=== PATIENT | female | born 1980 | race American Indian/Alaskan Native ===

== ENCOUNTER 2017-04-21 11:25 | Observation (INO) | payer OTHER ==
--- NOTE | 2017-04-20 13:49 | Anesthesia Consultation ---
Anesthesia Consult and Med Hx Date of service: 04/20/17 - Airway Anesthetic Teeth Evaluation: Good ROM Head & Neck: Adequate Mental/Hyoid Distance: Adequate Mallampati Class: Class II Intubation Access Assessment: Probably Good - Pulmonary Exam CTA: Yes - Cardiac Exam Cardiac Exam: RRR - Pre-Operative Health Status ASA Pre-Surgery Classification: ASA2 Proposed Anesthetic Plan: General Nerve Block: TAP - Pulmonary Hx Smoking: No Hx Asthma: Yes (last treated "during allergy season") Hx Sleep Apnea: No - Cardiovascular System Hx Hypertension: No - Central Nervous System Hx Psychiatric Problems: No - Gastrointestinal Hx Gastroesophageal Reflux Disease: Yes (OTC meds prn) - Hematic Hx Anemia: Yes - Other Systems Hx Cancer: No Hx Obesity: Yes - Additional Comments Anesthesia Medical History Comments: NAC
[2017-04-20 14:19] LABS: Basophils % (Auto) 0.4 % (0.0-1.8); Eosinophils % (Auto) 1.1 % (0.0-4.3); Hematocrit 32.5 % (30.3-42.9); Hemoglobin 10.3 gm/dl (10.1-14.3); Mean Corpuscular HGB Conc 32 % (30-34); Mean Corpuscular Volume 76 fl (79-97); Platelet Count 349 K/mm3 (140-440); Red Blood Count 4.25 M/mm3 (3.65-5.03); Red Cell Distribution Width 17.6 % (13.2-15.2); White Blood Count 8.5 K/mm3 (4.5-11.0)
[2017-04-20 14:31] LABS: Mean Corpuscular Hemoglobin 24 pg (28-32)
--- NOTE | 2017-04-20 16:47 | History and Physical Report ---
History of Present Illness Date of examination: 04/20/17 Chief complaint: Menorrhagia, anemia and uterine fibroids History of present illness: THe patient also has concerns regarding menstrual disorder. The patient complains of heavy bleeding and fatigue, but denies she may be , history of thyroid disease and history of bleeding disorders. Menstrual periods have been with excessive flow and with irregular bleeding between periods. She was started on Ferralet. States her hgb wa 7.8. On 03/03 started spotting. Periods have been irregular for ~2years, she's now bleeding 2x/month. She saturates overnight pads every 2hrs on her heaviest days. Past History : 2 Term Births: 2 Living Children: 2 # 1 Delivery date: 1997 Delivery type: # 2 Delivery date: 1998 Delivery type: ELEVATOR WORKER History Operations: Tubal Ligation Abnormal PAP: negative Relevant Family Hx: adopted Infection History HIV Risk Eval: no Hx of STD: None Active Medications (reviewed today): FERRALET 90 TABS (FE CBN-FE [id number] TABS) TRANEXAMIC ACID 650 MG TABS (TRANEXAMIC ACID) 1300 mg(2 tabs) 3 times daily ( 3900 mg daily) for up to 5 days during monthly menstruation Current Allergies (reviewed today): No known allergies Past Medical History: Reviewed history from 03/21/2017 and no changes required: Anemia Past Surgical History: Reviewed history from 03/21/2017 and no changes required: Tubal Ligation General Comments - FH: adopted Social History: Reviewed history from 03/21/2017 and no changes required: Patient is single Smoking History: Patient has never smoked. Risk Factors: Smoked Tobacco Use: Never smoker Alcohol use: no Previous Tobacco Use: Signed On - 03/28/2017 Smoked Tobacco Use: Never smoker Smokeless Tobacco Use: Never Passive smoke exposure: no Drug use: no HIV high-risk behavior: no Previous Alcohol Use: Signed On 03/28/2017 Alcohol use: no Exercise: no Seatbelt use: 100 % Review of Systems General Denies fever, chills, sweats, anorexia, fatigue, weakness, malaise, weight loss and sleep disorder. Complains of menorrhagia. Denies vaginal discharge, incontinence, dysuria, hematuria, urinary frequency, amenorrhea, abnormal vaginal bleeding, pelvic pain, genital sores, decreased libido, painful periods, painful sex, urinary urgency, hot flashes, vaginal dryness, vaginal itching and vaginal odor. CV Denies chest pains, palpitations, syncope, dyspnea on exertion, orthopnea, PND and peripheral edema. Resp Denies cough, dyspnea at rest, excessive sputum, hemoptysis, wheezing and pleurisy. GI Denies nausea, vomiting, diarrhea, constipation, change in bowel habits, abdominal pain, melena, hematochezia, jaundice, gas/bloating, indigestion/ heartburn, dysphagia and odynophagia. Endo Denies cold intolerance, heat intolerance, polydipsia, polyphagia, polyuria and unusual weight change. Breast Denies left breast lump, right breast lump, nipple discharge, bloody discharge from nipple, breast pain, abnormal mammogram and breast enlargement. MS Denies back pain, joint pain, joint swelling, muscle cramps, muscle weakness, stiffness, arthritis, sciatica, restless legs, leg pain at night and leg pain with exertion. Derm Denies rash, itching, dryness and suspicious lesions. Neuro Denies paralysis, paresthesias, headache, seizures, tremors, vertigo, transient blindness, frequent falls, frequent headaches and difficulty walking. Psych Denies depression, anxiety, irritability and mood swings. Eyes Denies blurring, diplopia, irritation, discharge, vision loss, eye pain and photophobia. ENT Denies earache, ear discharge, tinnitus, decreased hearing, nasal congestion, nosebleeds, sore throat and hoarseness. Allergy Denies urticaria, allergic rash, hay fever and recurrent infections. Heme Denies abnormal bruising, bleeding and enlarged lymph nodes. PHYSICAL EXAM Skin no ulcers, xanthomas Chest: respiratory effort normal, clear to auscultation CV: regular, normal S1-S2, no murmur, no rub, no gallop Abdomen: soft, non-tender, no masses, Extremities: normal alignment, no joint enlargement, crepitus, masses or tenderness; normal tone and strength ELEVATOR WORKER Exams Vulva/Vagina: normal appearance, no discharge, lesions. No evidence of cystocele or rectocele. Cervix: normal appearance, no lesions, no discharge Uterus: enlarged, fixed Adnexae: no masses or tenderness Impression & Recommendations: Problem # 1: Fibroids of uterus, Submucosal (ICD-218.0) (WXP96-N36.0) Diagnosis explained to patient . Questions answered. Discussed with patient various medical, surgical and radioloigal therapies common for treatment: Hormonal/medical therapy, fibroid embolization, removal of fibroids or hysterectomy She desires to proceed with hysterectomy. Consent reviewed and signed . Possible laparoscopy or laparotomy explained to patient. The risks and alternatives for this surgery were reviewed with the patient. She was informed of possible bleeding, infection, injury to bowel, bladder, ureters or other adjacent organs. She desires ovarian conservation. She was informed she may require surgery later to have her ovaries removed for a benign or mailgnant condition She was informed she will not be able to get after her uterus/womb has been removed. The patient was instructed/informed the following: The normal length of hospital stay for this procedure. Nothing to eat or drink after midnight the evening prior to surgery. Clear liquids the day before surgery. Fleets enema the day prior to surgery. Pre-op instruction sheets given. Wound care instructions given. Infection precautions reviewed, patient to call for any signs or symptoms of infection. The usual discomforts associated with this procedure were detailed. Proper use of pain medicines was reviewed. Patient was given ample opportunity to have all her questions answered before signing informed consent. Problem # 2: Excessive and frequent menstruation with regular cycle (ICD-626.2 ) (DTC75-Z31.0) Diagnosis explained to patient . Questions answered. Discussed with patient various medical and surgical therapies common for treatment: Hormonal/medical therapy,endometrial ablation or hysterectomy. Medications Added to Medication List This Visit: 1) Ibuprofen 800 Mg Tabs (Ibuprofen) .... 1 po tid (prn) 2) Oxycodone-acetaminophen 5-325 Mg Tabs (Oxycodone-acetaminophen) .... 1-2po q6h Prescriptions: IBUPROFEN 800 MG TABS (IBUPROFEN) 1 po TID (PRN) #30 x 1 Entered and Authorized by: Taylor Argueta MD Method used: Print then Give to Patient RxID: [id number] OXYCODONE-ACETAMINOPHEN 5-325 MG TABS (OXYCODONE-ACETAMINOPHEN) 1-2po q6h #30 x 0 Entered and Authorized by: Taylor Argueta MD Method used: Print then Give to Patient RxID: [id number] Medications and Allergies Allergies Allergy/AdvReac Type Severity Reaction Status Date / Time No Known Allergies Allergy Unverified 04/19/17 15:22 Home Medications Medication Instructions Recorded Confirmed Last Taken Type Ferrous Sulfate [Feosol] 325 mg PO QDAY 04/19/17 04/19/17 Unknown History Active Meds: Active Medications Famotidine (Pepcid) 20 mg PO PREOP NR Stop: 04/21/17 23:59 Lactated Ringer's (Lactated Ringers) 1,000 mls @ 100 mls/hr IV DIRECT JOYCE Cefazolin Sodium (Ancef/Sterile Water 2 Gm/20 Ml) 2 gm in 20 mls @ 80 mls/hr IV PREOP NR PRN Reason: Protocol Stop: 04/21/17 23:59 Midazolam HCl (Versed) 2 mg IV PREOP NR Stop: 04/21/17 23:59 Scopolamine (Transderm-Scop) 1 each TD PREOP NR Stop: 04/21/17 23:59 Exam Vital Signs Temp Pulse Resp BP 97.8 F 68 16 142/88 04/20/17 13:50 04/20/17 13:50 04/20/17 13:50 04/20/17 13:50 Results - Labs 04/20/17 13:39 Abnormal lab results 04/20/17 Range/Units 13:39 MCV 76 L (79-97) fl MCH 24 L (28-32) pg RDW 17.6 H (13.2-15.2) % Assessment and Plan - Patient Problems (1) Menorrhagia Status: Acute Qualifiers: Menorrahagia type: with irregular cycle Qualified Code(s): N92.1 - Excessive and frequent menstruation with irregular cycle (2) Anemia Status: Acute Qualifiers: Anemia type: A Iron deficiency anemia type: chronic blood loss Vitamin B12 deficiency anemia type: V Folate deficiency anemia type: F Bone marrow failure anemia type: B Hemolytic anemia type: H Other causes of anemia: O Chronic kidney disease stage: C Qualified Code(s): D50.0 - Iron deficiency anemia secondary to blood loss (chronic) (3) Fibroid Status: Acute Qualifiers: Uterine leiomyoma location: intramural, submucous, and subserous Qualified Code(s): D25.1 - Intramural leiomyoma of uterus; D25.0 - Submucous leiomyoma of uterus; D25.2 - Subserosal leiomyoma of uterus
[~2017-04-21 11:25] MED LIST: ANCEF/STERILE WATER 2 GM/20 ML 2 GM/20 ML SYRINGE IV NR; VERSED IV NR
[2017-04-21] MEDS ORDERED: PEPCID PO NR (12:00)
[2017-04-21] MEDS ORDERED: LACTATED RINGERS 1,000 ML IV SCH ×2 (12:00→18:41)
--- NOTE | 2017-04-21 12:20 | Anesthesia Day of Surgery ---
Anesthesia Day of Surgery - Day of Surgery Patient Examined: Yes Patient H&P Reviewed: Yes Patient is NPO: Yes
[2017-04-21] MEDS ORDERED: NEURONTIN PO NR (13:00)
[2017-04-21] MEDS ORDERED: TRANSDERM-SCOP TD NR (13:00)
[2017-04-21] MEDS ORDERED: SUBLIMAZE IV NR (13:00)
[2017-04-21] MEDS ORDERED: ZOFRAN IV PRN ×2 (13:00→18:41)
[2017-04-21] MEDS ORDERED: DILAUDID IV PRN (13:00)
[2017-04-21] MEDS ORDERED: DIPRIVAN 10 MG/ML IV ONE (13:04)
[2017-04-21] MEDS ORDERED: DILAUDID ONE ×3 (13:04→17:35)
[2017-04-21] MEDS ORDERED: SUBLIMAZE ONE (13:04)
[2017-04-21] MEDS ORDERED: NEOSTIGMINE ONE (13:05)
[2017-04-21] MEDS ORDERED: ZOFRAN ONE (13:05)
[2017-04-21] MEDS ORDERED: ROBINUL ONE ×2 (13:05)
[2017-04-21] MEDS ORDERED: ZEMURON IV ONE (13:05)
[2017-04-21] MEDS ORDERED: DECADRON ONE ×2 (13:05→13:16)
[2017-04-21] MEDS ORDERED: XYLOCAINE MPF 2% ONE (13:05)
[2017-04-21] MEDS ORDERED: CALCIUM CHLORIDE IV ONE (13:08)
[2017-04-21] MEDS ORDERED: THROMBIN (BOVINE) TP ONE (13:08)
[2017-04-21] MEDS ORDERED: NEOSPORIN GU IR ONE (13:09)
[2017-04-21] MEDS ORDERED: MARCAINE-EPI/PF 0.5%-1:200,000 INFILTRATI ONE (13:16)
[2017-04-21] MEDS ORDERED: NEO SYNEPHRINE/NS Syringe(OR USE) IV ONE (13:30)
[2017-04-21] MEDS ORDERED: LACTATED RINGERS 1,000 ML ONE (14:39)
--- NOTE | 2017-04-21 16:53 | Post Anesthesia Evaluation ---
- Post Anesthesia Evaluation Patient Participated: Yes Airway Patent: Yes Stable Respiratory Function: Yes Temp > 96.8F: Yes Pain Manageable: Yes Adequeate Hydration: Yes Anesthesia Complications: No
[2017-04-21] MEDS: DILAUDID IV PRN ×4 (17:18→18:00)
--- NOTE | 2017-04-21 17:29 | Operative Report ---
Operative Report Operative Report: Date of procedure: 04/21/2017 Pre-operative diagnosis: 1. Menometrorrhagia 2. Uterine fibroids 3. Anemia Post-operative diagnosis: 1. Menometrorrhagia 2. Uterine fibroids 3. Anemia 4. Abdominal adhesions Procedure name(s): 1. Robotic-assisted total hysterectomy 2. Bilateral salpingectomy 3. Lysis of abdominal adhesions Surgeon: Taylor Argueta MD Park Services Specialist: Yumiko Moody Anesthesia: General anesthesia Findings: Exam under anesthesia revealed the uterus to be 12-14 weeks and fixed. Uterus was sounded to 10 cm. Periumbilical omental adhesions. Multiple uterine fibroids. Grossly normal ovaries bilaterally. Grossly normal interrupted fallopian tubes bilaterally. No obvious bowel, bladder, ureteral or major vascular injury. Anesthesiologist: Dr. Melendrez Complications: None EBL: Less than 100 mL Procedure: After risks, benefits complications, consequences, and alternatives for this procedure were discussed the patient, and she voiced understanding and desired to proceed, she was taken to the OR where general anesthesia was induced. She was placed in the dorsolithotomy position, exam under anesthesia was as above. She was then prepped and draped in usual sterile fashion. Evans catheter was introduced into the bladder. A bivalve speculum was introduced into the vagina, and the anterior lip of the cervix was grasped with a single-tooth tenaculum. The uterus was sounded to approximately 10 cm. The cervix was progressively dilated to allow the large the V care uterine manipulator. The tenaculum and speculum were removed and the Vcare manipulator was secured in place. A solution saturated laparotomy sponge was placed in the vagina. Sterile gloves were placed and attention was turned to the abdomen. A 12 mm Optiview trocar with scope and camera attached was placed through a midline vertical incision was approximately 10 cm superior to the elevated fundus of the uterus. The trocar with camera attached was placed under direct visualization. No bowel, bladder, ureteral or major blood vessel injury was noted. Periumbilical omental adhesions were noted. A 5 mm trocar was able to be placed under direct visualization in the right lateral lower abdominal region approximately 2 cm superior to the anterior superior iliac crest. An 8 mm robotic trocar was placed in the left midclavicular lower abdominal region under direct visualization again no bowel bladder or ureteral or major vascular injury was noted. Using the EndoShears and 30 W of energy the periumbilical adhesions were reduced. At this point the second 8 mm robotic trocar was able to be introduced through an incision made in the right midclavicular lower abdominal region under direct visualization. Once the trocars were in the proper position the robot was engaged. The 12 mm Optiview trocar was removed and a A 0 Vicryl suture was placed through the fascia of the midline vertical incision using the Vivek-Roz fascia closure device. The trocar was reintroduced and the suture was held with a hemostat. The instruments were introduced into the 8 mm trochars. Attention was turned to console. Bilateral salpingectomy is performed and the tubes were removed through the 5 mm trocar. The Uterus was elevated, the utero-ovarian ligaments were clamped, cauterized and incised bilaterally using 30 W of energy. Then the round ligaments were clamped, cauterized and incised bilaterally. The anterior leaf of the broad ligament was elevated with both blunt and sharp dissection the bladder flap was created. Once the bladder appeared to be away from the operative field attention was turned the posterior leaf of the broad ligaments. The ligaments were elevated and dissected away from the uterine vessels. Once the outline of the Vcare uterine manipulator was visualized, the uterine vessels were clamped and cauterized bilaterally. Once blanching of the uterus was noted, and the posterior outline of the Vcare manipulator was visualized, and confirmed, colpotomy was performed down to the cup of the manipulator. This incision was extended in a circumferential manner to 9:00 and 3:00 positions. The uterine vessels were clamped, cauterized and incised. The colpotomy was completed. The uterus was then delivered through the vagina. Attention was turned to the adnexa. Grossly normal ovaries were noted. The pelvis was irrigated with solution warm saline. Once hemostasis was noted the vagina was reapproximated using the V LOC 180 suture. The pelvis was again irrigated with warm normal saline. Once hemostasis was noted, Tisseel was applied for further hemostasis followed by Interceed to prevent adhesions. The ureters were noted to be peristaltic and away from the operative field. The robot was then disengaged. And the 5 mm scope was then reintroduced into the 5 mm trocar. The omentum was visualized and noted to be hemostatic. The abdomen and pelvis were again visualized, no bowel, bladder, ureteral or major vascular injury was noted, hemostasis was also noted. The trocars were removed. The fascial incision was then ligated. The skin incisions were approximated using 4-0 Vicryl in a subcuticular manner. The incisions were then sealed with Octylseal.The laparotomy sponge was removed from the vagina, and hemostasis was noted. The patient tolerated the procedure well and was taken to recovery room in stable condition. Counts were correct x3. Clear yellow urine was noted draining into the Evans catheter was noted.
[2017-04-21] MEDS ORDERED: MORPHINE IV PRN (18:41)
[2017-04-21] MEDS ORDERED: REGLAN IV PRN (18:41)
[2017-04-21] MEDS ORDERED: ZOFRAN PO PRN (18:41)
[2017-04-21] MEDS ORDERED: REGLAN PO PRN (18:41)
[2017-04-21] MEDS ORDERED: TYLENOL PR PRN (18:41)
[2017-04-21] MEDS ORDERED: TYLENOL PO SCH (18:41)
[2017-04-21] MEDS: PEPCID IV SCH (22:11)
[2017-04-21] MEDS: ANCEF/NS 1 GM/50 ML 1 GM/50 ML BAG IV SCH (22:12)
[2017-04-21] MEDS: TORADOL IV SCH (22:12)
[2017-04-21] MEDS: MORPHINE IV PRN (22:53)
[2017-04-22] MEDS: TORADOL IV SCH ×2 (03:56→10:38)
[2017-04-22] MEDS: ANCEF/NS 1 GM/50 ML 1 GM/50 ML BAG IV SCH (03:57)
[2017-04-22] MEDS: MORPHINE IV PRN (04:16)
[2017-04-22 04:26] LABS: Hematocrit 26.7 % (30.3-42.9); Hemoglobin 8.6 gm/dl (10.1-14.3)
[2017-04-22] MEDS ORDERED: TYLENOL PO ONE (08:22)
--- NOTE | 2017-04-22 09:59 | Progress Note ---
Subjective Date of service: 04/22/17 Interval history: 1st POD after robotic hysterectomy Patient is in the bed, comfortable. pain is mostly controlled with pain meds. Ambulated well. No nausea or vomiting. No anesthesia complications Objective - Constitutional Vitals: Vital Signs - 12hr 04/22/17 04/22/17 00:00 05:35 Temperature 98.0 F 98.0 F Pulse Rate 54 L 51 L Respiratory 18 Rate Blood Pressure 101/52 93/47 [Left] - Labs CBC & Chem 7: 04/22/17 04:10 Labs: Abnormal lab results 04/22/17 Range/Units 04:10 Hgb 8.6 L (10.1-14.3) gm/dl Hct 26.7 L (30.3-42.9) %
[2017-04-22] MEDS: PEPCID IV SCH (10:38)
[2017-04-22] MEDS ORDERED: PNEUMOVAX 23 IM ONE (12:00)
--- NOTE | 2017-04-22 13:51 | Discharge Summary ---
Providers - Providers Date of Admission: 04/21/17 16:20 Attending physician: RAMIREZ DOW Primary care physician: LISA RAUSCH Hospitalization Condition: Good Disposition: DC-01 TO HOME OR SELFCARE - Discharge Diagnoses (1) Menorrhagia Status: Resolved Qualifiers: Menorrahagia type: with irregular cycle Qualified Code(s): N92.1 - Excessive and frequent menstruation with irregular cycle (2) Anemia Status: Chronic Qualifiers: Anemia type: A Iron deficiency anemia type: chronic blood loss Vitamin B12 deficiency anemia type: V Folate deficiency anemia type: F Bone marrow failure anemia type: B Hemolytic anemia type: H Other causes of anemia: O Chronic kidney disease stage: C Qualified Code(s): D50.0 - Iron deficiency anemia secondary to blood loss (chronic) (3) Fibroid Status: Resolved Qualifiers: Uterine leiomyoma location: intramural, submucous, and subserous Qualified Code(s): D25.1 - Intramural leiomyoma of uterus; D25.0 - Submucous leiomyoma of uterus; D25.2 - Subserosal leiomyoma of uterus Core Measure Documentation - Palliative Care Palliative Care/ Comfort Measures: Not Applicable - Core Measures Any of the following diagnoses?: none Exam - Constitutional Vitals: Temp Pulse Resp BP Pulse Ox 98.8 F 61 18 98/48 96 04/22/17 12:30 04/22/17 12:30 04/22/17 12:30 04/22/17 12:30 04/21/17 21:37 General appearance: Present: no acute distress - Respiratory Respiratory effort: normal Respiratory: negative: CTA - Cardiovascular Rhythm: regular - Extremities Extremities: no ischemia, No edema (NT) - Abdominal General gastrointestinal: Present: soft, non-tender, non-distended, normal bowel sounds Female genitourinary: Present: deferred - Integumentary Integumentary: Present: clear, warm, dry (Incisions: C/D/I) - Psychiatric Psychiatric: appropriate mood/affect Plan Activity: other (No sex, ambulate on your property ~1mile a day. Void frequently. Stay home except MD visits. ) Weight Bearing Status: Non-Weight Bearing Diet: regular (eat small meals frequently. Avoid spicy, fatty and acidic foods. Drink 90oz water a day.) Wound: open to air, keep clean and dry Special Instructions: no heavy lifting Additional Instructions: Eat a small meal prior to taking oxycodone. May alternate Motrin and two regular strength Tylenol or one tablet of oxycodone. Have someone at home with you continuously for the first 24-48 hours. Use your incentive spirometer every hour while awake. Constantly rotate your ankles while seated to prevent the development of clots in your legs. Call my office for any concerns or problems. Follow up with: LISA RAUSCH MD [Primary Care Provider] - 7 Days RAMIREZ DOW MD [Staff Physician] - (As scheduled) Forms: Work/School Release Form
[2017-04-22] MEDS ORDERED: TYLENOL PO SCH (14:30)
[2017-04-22] MEDS ORDERED: PERCOCET 5/325 PO PRN (16:19)
[2017-04-22] MEDS ORDERED: DIFLUCAN PO ONE (16:43)
[2017-04-22] MEDS ORDERED: TYLENOL PO PRN (17:00)
[2017-04-22 18:41] VITALS: BP 104/43
[2017-04-22] MEDS ORDERED: COLACE ONE (19:10)
[2017-04-22] MEDS ORDERED: COLACE PO SCH (22:00)
== END 2017-04-22 19:17 | disposition home or self-care (01) ==
LOC: OR 11:25 → OB 16:20
PROVIDERS: ADMIT Obstetrics & Gynecology; ATTEND Obstetrics & Gynecology
DX: N92.1 Excessive and frequent menstruation with irregular cycle (principal); D25.0 Submucous leiomyoma of uterus; K66.0 Peritoneal adhesions (postprocedural) (postinfection); D64.9 Anemia, unspecified; Z90.710 Acquired absence of both cervix and uterus; Z90.79 Acquired absence of other genital organ(s)
CPT/HCPCS: 36415; 58571; 64450; 81025; 85014; 85018; 85025; 86850; 86900; 86901; 88302; 88307; 94760; 96365; 96375; 96376; C1765; C9250; G0378; J0690; J1100; J1170; J1885; J2250; J2270; J2370; J2405; J2704; J2710; J3010; J7120; S2900; 90732